=== PATIENT | male | born 1995 ===

== ENCOUNTER 2017-03-25 13:23 | Emergency (ER) | payer SELFPAY ==
[2017-03-25 13:39] VITALS: BP 137/90
--- NOTE | 2017-03-25 14:53 | Emergency Department Report ---
ED Lower Extremity HPI - General Chief Complaint: Sore Throat Stated Complaint: FLU SYMPTOMS Time Seen by Provider: 03/25/17 14:50 Source: patient Mode of arrival: Ambulatory Limitations: No Limitations - Related Data Allergies Allergy/AdvReac Type Severity Reaction Status Date / Time No Known Allergies Allergy Unverified 03/25/17 13:41 ED Review of Systems ROS: Stated complaint: FLU SYMPTOMS Other details as noted in HPI ED Past Medical Hx - Past Medical History Previous Medical History?: No - Surgical History Past Surgical History?: No - Social History Smoking Status: Current Every Day Smoker Substance Use Type: None ED Physical Exam - General Limitations: No Limitations ED Course Vital Signs 03/25/17 13:35 Temperature 99.3 F Pulse Rate 89 Respiratory 18 Rate Blood Pressure 137/90 O2 Sat by Pulse 97 Oximetry Critical care attestation.: If time is entered above; I have spent that time in minutes in the direct care of this critically ill patient, excluding procedure time. ED Disposition Condition: Stable
== END 2017-03-25 15:44 | disposition left against medical advice (07) ==
LOC: ED 13:23
DX: J11.1 Influenza due to unidentified influenza virus with other respiratory manifestations (principal); Z53.21 Procedure and treatment not carried out due to patient leaving prior to being seen by health care provider